=== PATIENT | male | born 1970 | race Caucasian/White ===

== ENCOUNTER 2019-01-21 05:14 | Emergency (ER) | payer BC ==
[2019-01-21] MEDS ORDERED: Aspirin 81 MG Tab.Chew PO ONE (05:27)
--- NOTE | 2019-01-21 05:33 | EDM.PDOC ---
ED HPI GENERAL MEDICAL PROBLEM - General Chief Complaint: Chest Pain Stated Complaint: CHEST PAINS Time Seen by Provider: 01/21/19 05:27 Source of Information: Reports: Patient History Limitations: Reports: No Limitations - History of Present Illness INITIAL COMMENTS - FREE TEXT/NARRATIVE: pt has a history of atrial fib and now he has chest pain after doing alot of swimming. Onset: Today, Other ( started in the middle of the nite. ) Duration: Hour(s): Location: Reports: Chest Associated Symptoms: Reports: Chest Pain, Other ( mild sob. He is just getting over a cold. ) Chest Pain Score (Numeric/FACES): 7 - Related Data Allergies Allergy/AdvReac Type Severity Reaction Status Date / Time No Known Allergies Allergy Verified 01/21/19 05:38 Home Meds: Home Meds NK [No Known Home Meds] 01/21/19 [History] ED ROS GENERAL - Review of Systems Review Of Systems: See Below Constitutional: Reports: No Symptoms HEENT: Reports: No Symptoms Respiratory: Reports: Shortness of Breath Cardiovascular: Reports: Chest Pain, Other (hurtsmore if he turns in a certain direction. ) Endocrine: Reports: No Symptoms GI/Abdominal: Reports: No Symptoms : Reports: No Symptoms Musculoskeletal: Reports: Other (pt was doing alot of swimming and he is wondering if this is related to that activity. ) Skin: Reports: No Symptoms Neurological: Reports: No Symptoms Psychiatric: Reports: No Symptoms ED EXAM, GENERAL - Physical Exam Exam: See Below Free Text/Narrative:: pt arrived with pain the middle of his chest more on the left. [place] had [place]. He woke up with pain in the chest. It did hurt more when he moved. Exam Limited By: No Limitations General Appearance: Alert, Anxious, Moderate Distress Ears: Normal TMs Nose: Normal Inspection Throat/Mouth: Normal Inspection Head: Atraumatic Neck: Normal Inspection Respiratory/Chest: No Respiratory Distress, Other (pt is very tender in the left costosternal joints. ) Cardiovascular: Regular Rate, Rhythm, Other (pt does have a history of atrial fib. ) GI/Abdominal: Soft, Non-Tender (Male) Exam: Deferred Rectal (Males) Exam: Deferred Back Exam: Normal Inspection Extremities: Normal Inspection Neurological: Alert, Oriented, Normal Cognition Psychiatric: Anxious Course - Vital Signs Last Recorded V/S: Last Vital Signs Temp 35.7 C 01/21/19 05:31 Pulse 73 01/21/19 06:09 Resp 18 01/21/19 06:09 BP 141/97 H 01/21/19 06:09 Pulse Ox 97 01/21/19 06:09 - Orders/Labs/Meds Orders: Active Orders 24 hr Category Date Time Status UA W/MICROSCOPIC [URIN] Urgent Lab 01/21/19 06:25 Ordered Labs: Laboratory Tests 01/21/19 01/21/19 Range/Units 05:34 05:34 WBC 7.1 (4.5-11.0) K/uL RBC 4.39 (4.30-5.90) M/uL Hgb 13.7 (12.0-15.0) g/dL Hct 39.9 L (40.0-54.0) % MCV 91 (80-98) fL MCH 31 (27-31) pg MCHC 34 (32-36) % Plt Count 229 (150-400) K/uL Neut % (Auto) 52 (36-66) % Lymph % (Auto) 35 (24-44) % [place] % (Auto) 10 H (2-6) % Eos % (Auto) 4 (2-4) % Baso % (Auto) 1 (0-1) % Sodium 141 (140-148) mmol/L Potassium 4.0 (3.6-5.2) mmol/L Chloride 104 (100-108) mmol/L Carbon Dioxide 27 (21-32) mmol/L Anion Gap 10.2 (5.0-14.0) mmol/L BUN 18 (7-18) mg/dL Creatinine 1.1 (0.8-1.3) mg/dL Est Cr Clr Drug Dosing 92.81 mL/min Estimated GFR (MDRD) > 60 (>60) Glucose 114 H (74-106) mg/dL Calcium 8.8 (8.5-10.1) mg/dL Total Bilirubin 0.5 (0.2-1.0) mg/dL AST 24 (15-37) U/L ALT 44 (12-78) U/L Alkaline Phosphatase 85 (46-116) U/L Troponin I < 0.017 (0.000-0.056) ng/mL Total Protein 7.1 (6.4-8.2) g/dL Albumin 3.6 (3.4-5.0) g/dL Globulin 3.5 (2.3-3.5) g/dL Albumin/Globulin Ratio 1.0 L (1.2-2.2) Meds: Medications Discontinued Medications Generic Name Dose Route Start Last Admin Trade Name Tr PRN Reason Stop Dose Admin Aspirin 324 mg 01/21/19 05:27 01/21/19 05:52 Aspirin PO 01/21/19 05:28 324 mg ONETIME ONE Administration Ketorolac Tromethamine 60 mg 01/21/19 05:57 01/21/19 06:11 Toradol IM 01/21/19 05:58 Not Given ONETIME ONE Ketorolac Tromethamine 30 mg 01/21/19 06:01 01/21/19 06:05 Toradol IVPUSH 01/21/19 06:02 30 mg ONETIME ONE Administration - Re-Assessments/Exams Free Text/Narrative Re-Assessment/Exam: 01/21/19 06:07 pt had a normal ekg. His rhytm was sinus. He had a normal chest xray. He had a normal trop and his other labs looked normal. He was given torodol 30mg iv to see if he got good relief. 01/21/19 06:27 pt did get relief from the torodol. Departure - Departure Time of Disposition: 06:27 Disposition: Home, Self-Care 01 Condition: Fair Clinical Impression: Chest wall pain, History of atrial fibrillation Referrals: PCP,None [Primary Care Provider] - Forms: ED Department Discharge Care Plan Goals: moist heat to the anterior chest, torodol 10mg q6h with food for the next 3-4 days. - My Orders Last 24 Hours: My Active Orders 01/21/19 06:25 UA W/MICROSCOPIC [URIN] Urgent - Assessment/Plan Last 24 Hours: My Active Orders 01/21/19 06:25 UA W/MICROSCOPIC [URIN] Urgent
--- NOTE | 2019-01-21 05:55 | CRLCR ---
Indication: Chest wall pain Technique: Chest 1 view Comparison: None Findings/Impression: Cardiovascular and mediastinum: Heart size and vasculature are normal in caliber and appearance. Mediastinum is within normal limits. Lungs and pleural space: Lungs are clear. No sign of infiltrate or mass. No sign of pleural effusion. No pneumothorax. Bones and soft tissues: No significant findings. Dictated by Jeanette Roca MD @ Jan 21 2019 5:53AM Signed by Dr. Jeanette Roca @ Jan 21 2019 5:54AM
[2019-01-21] MEDS ORDERED: Ketorolac 60 MG/2 ML SDV IM ONE (05:57)
[2019-01-21] MEDS ORDERED: Ketorolac 30 MG/ML SDV IVPUSH ONE (06:01)
== END 2019-01-21 06:48 | disposition home or self-care (01) ==
LOC: JP.ED 05:14
DX: R07.89 Other chest pain (principal); Z86.79 Personal history of other diseases of the circulatory system
CPT/HCPCS: 36415; 71045; 80053; 81001; 84484; 85025; 96374; 99284; A9270; J1885; 93005